=== PATIENT | male | born 1970 | race Asian ===

== ENCOUNTER 2017-09-23 11:00 | Emergency (ER) | payer OTHER ==
[~2017-09-23] VITALS: Ht 165.1 cm; Wt 70.3 kg
[2017-09-23 11:00] VITALS: BP_SYST 120
[2017-09-23 11:37] VITALS: BP_SYST 119
== END 2017-09-23 11:35 | disposition home or self-care (01) ==
LOC: SED 11:00
DX: S80.811A Abrasion, right lower leg, initial encounter (principal); X58.XXXA Exposure to other specified factors, initial encounter; Y93.89 Activity, other specified; Y92.89 Other specified places as the place of occurrence of the external cause; Y99.8 Other external cause status
CPT/HCPCS: 99283